=== PATIENT | male | born 1990 | race African-American/Black ===

== ENCOUNTER 2022-12-29 08:47 | Emergency (ER) | payer OTHER, SELFPAY ==
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
[2022-12-29 08:52] VITALS: BP 136/58; PULSE 81; RESP 16; TEMP 37.4; O2SAT 100
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
[2022-12-29] MEDS: CYCLOBENZAPRINE HCL 10 MG TABLET PO (09:51)
[2022-12-29] MEDS: KETOROLAC (*BKC) 60 MG/2 ML VIAL IM (09:51)
[2022-12-29 09:56] VITALS: BP 130/82; PULSE 88; RESP 16; O2SAT 100
== END 2022-12-29 10:54 | disposition home or self-care (01) ==
PROVIDERS: Emergency Provider Nurse Practitioner Family
DX: S39.012A Strain of muscle, fascia and tendon of lower back, initial encounter (principal); V68.1XXA Passenger in heavy transport vehicle injured in noncollision transport accident in nontraffic accident, initial encounter
CPT/HCPCS: 71046; 71110; 72131; 96372; 99284; A9270; J1885